=== PATIENT | female | born 1945 | race African-American/Black ===

== ENCOUNTER 2016-11-10 14:00 | Outpatient (RCR) | payer MEDICARE | END 2016-11-17 | disposition home or self-care (01) | LOC: PTY 14:00 | DX: M76.61 Achilles tendinitis, right leg (principal); M67.00 Short Achilles tendon (acquired), unspecified ankle | CPT/HCPCS: 97035; 97110; 97140; 97161; G0283; G8978; G8979 ==

== ENCOUNTER 2016-11-18 09:26 | Outpatient (RCR) | payer MEDICARE, BC | END 2016-12-15 | disposition home or self-care (01) | LOC: PTY 09:26 | DX: M76.61 Achilles tendinitis, right leg (principal); M67.00 Short Achilles tendon (acquired), unspecified ankle | CPT/HCPCS: 97035; 97110; 97140; G0283; G8978; G8979 ==

== ENCOUNTER 2016-12-22 09:00 | Outpatient (RCR) | payer MEDICARE, BC | END 2017-01-15 | disposition home or self-care (01) | LOC: PTY 09:00 | DX: M76.61 Achilles tendinitis, right leg (principal); M67.00 Short Achilles tendon (acquired), unspecified ankle | CPT/HCPCS: 97035; 97140; G0283 ==